=== PATIENT | female | born 1965 | race Caucasian/White ===

== ENCOUNTER 2021-11-05 07:40 | Emergency (ER) | payer MEDICAID ==
[~2021-11-05] VITALS: Ht 165.1 cm; Wt 70.3 kg
[2021-11-05 07:42] VITALS: BP 115/62
--- NOTE | 2021-11-05 09:52 | NUR ---
PT C/O NAUSEA X3 DAYS. MEDICATED BOTTOM TURNING LATHE TURNER. TOLERATING PO INTAKE WITHOUT ANY N/V
[2021-11-05 11:01] VITALS: BP 141/70
--- NOTE | 2021-11-05 11:02 | NUR ---
Patient discharged with v/s stable. Written and verbal after care instructions given and explained. Patient verbalized understanding. Ambulatory with steady gait. All questions addressed prior to discharge. Advised to follow up with PMD.
== END 2021-11-05 11:01 | disposition home or self-care (01) ==
LOC: MED 07:40
DX: S71.112D Laceration without foreign body, left thigh, subsequent encounter (principal); I10 Essential (primary) hypertension; Z88.0 Allergy status to penicillin; X58.XXXD Exposure to other specified factors, subsequent encounter
CPT/HCPCS: 99283

== ENCOUNTER 2021-11-15 21:29 | Emergency (ER) | payer MEDICAID ==
[~2021-11-15] VITALS: Ht 167.6 cm; Wt 59.0 kg
[2021-11-15 22:03] VITALS: BP 124/68
--- NOTE | 2021-11-15 22:26 | NUR ---
TO LOBBY FOLLOWING TRIAGE
[2021-11-15 23:22] LABS: BASOPHILS % (AUTO) 0.1 % (0.0-2.0); EOSINOPHILS % (AUTO) 0.1 % (0.0-4.0); HEMATOCRIT 42.3 % (36-48); LYMPHOCYTES # (AUTO) 2.7 K/uL (2.5-16.5); LYMPHOCYTES % (AUTO) 43.2 % (20.5-51.1); MEAN CORPUSCULAR HEMOGLOBIN 28 pg (27-31); MEAN CORPUSCULAR HGB CONC 33 g/dL (33-37); MEAN CORPUSCULAR VOLUME 85.8 fL (80-94); MONOCYTES # (AUTO) 0.4 K/uL (0.8-1.0); MONOCYTES % (AUTO) 6.9 % (1.7-9.3); NEUTROPHILS # (AUTO) 3.1 K/uL (1.8-7.7); NEUTROPHILS % (AUTO) 49.7 % (42.2-75.2); PLATELET COUNT (AUTO) 162 K/uL (140-450); RED BLOOD CELL COUNT(AUTO) 4.93 MIL/uL (4.20-5.40); RED CELL DISTRIBUTION WIDTH 14.2 % (11.6-13.7); WHITE BLOOD COUNT (AUTO) 6.3 K/uL (4.8-10.8)
[2021-11-15 23:47] LABS: ALBUMIN 3.9 g/dL (3.4-5.0); ANION GAP 13.7 (8-16); ASPARTATE AMINOTRANSFERASE 23 U/L (15-37); CARBON DIOXIDE 28.2 mmol/L (21-32); CHLORIDE 104 mmol/L (98-107); CREATININE 0.8 mg/dL (0.6-1.3); GFR ARICAN-AMERICAN 95 mL/min (>90); GLUCOSE 74 mg/dL (74-106); POTASSIUM 3.9 mmol/L (3.5-5.1); SALICYLATE 3.5 mg/dL (2.8-20.0); SODIUM SERUM 142 mmol/L (136-145); UREA NITROGEN, BLOOD 20 mg/dL (7-18)
--- NOTE | 2021-11-16 01:54 | NUR ---
Called no show in lobby and outside.
--- NOTE | 2021-11-16 02:02 | NUR ---
Dr. Meredith examining patient.
--- NOTE | 2021-11-16 02:10 | NUR ---
Patient taken to Chair A.
--- NOTE | 2021-11-16 02:22 | NUR ---
Patient taken to bed 7.
--- NOTE | 2021-11-16 02:25 | NUR ---
Patient reported, can not provide urine sample this time.
[2021-11-16] MEDS ORDERED: ARIPiprazole 10 MG TAB ONE (06:57)
--- NOTE | 2021-11-16 09:30 | NUR ---
URINE SENT OUT TO LAB
--- NOTE | 2021-11-16 10:30 | NUR ---
REFER BACK TO PAPER CHART FOR PREVIOUS INTERVENTIONS
[2021-11-16 11:03] LABS: BARBITURATE, URINE NEGATIVE ng/ml (NEG <=200); BENZODIAZEPINE, URINE NEGATIVE ng/mL (NEG <=200); CANNABINOID, URINE NEGATIVE ng/mL (NEG <=50); COCAINE, URINE NEGATIVE ng/mL (NEG <=300); OPIATE, URINE NEGATIVE ng/mL (NEG <=2000); PHENCYCLIDINE SCREEN,URINE NEGATIVE ng/mL (NEG <=25)
--- NOTE | 2021-11-16 11:36 | NUR ---
MD KEMAR BROCK, AWAITING CALLBACK
--- NOTE | 2021-11-16 11:45 | NUR ---
Nathaly chang in [facility] - 11/16/21 at 1146 by [facility] CALL BACK RECEIVED FROM MD REINOSO. PENDING TELEPSYCH - APPRX 1HR
--- NOTE | 2021-11-16 11:47 | NUR ---
CALL BACK RECEIVED FROM MD REINOSO. PT OK FOR D/C AFTER RX
[2021-11-16] MEDS ORDERED: ABI10 PO (11:59)
--- NOTE | 2021-11-16 12:00 | NUR ---
PT REFUSED TX AND UNCOMPLIANT W/ ASSESSMENT
--- NOTE | 2021-11-16 12:07 | NUR ---
Chart checked and completed. The patient's care was reviewed and supervised by Patria Flores RN.
--- NOTE | 2021-11-16 12:07 | NUR ---
Patient discharged with v/s stable. Written and verbal after care instructions FOR BIPOLAR 1 DISORDER given and explained. Patient alert, oriented and verbalized understanding of instructions. Ambulatory with steady gait. All questions addressed prior to discharge. ID band removed. Patient advised to follow up with PMD. Rx of ABILIFY given. Opportunity to ask questions provided and answered.
[2021-11-16] MEDS ORDERED: ARIPiprazole 10 MG TAB PO ONE (14:10)
== END 2021-11-16 12:07 | disposition home or self-care (01) ==
LOC: MED 21:29
DX: R45.851 Suicidal ideations (principal); Z20.822 Contact with and (suspected) exposure to COVID-19; F17.210 Nicotine dependence, cigarettes, uncomplicated; I10 Essential (primary) hypertension; Z88.0 Allergy status to penicillin
CPT/HCPCS: 36415; 80053; 80305; 81002; 85025; 87426; 99283; G0480; G0482